=== PATIENT | male | born 1955 | race Two or more races ===

== ENCOUNTER 2023-03-28 07:10 | Inpatient (IN) | payer OTHER ==
[~2023-03-28] VITALS: Ht 167.6 cm; Wt 98.1 kg
[~2023-03-28 07:10] MED LIST: AZITTAB11 PO; METH4TAB PO; OXCA600T3 PO; OXCARBAZEPINE; PHEN100C PO; PHENYTOIN; TOPI100T68 PO; TOPI25TA43 PO
[2023-03-28 08:00] LABS: Basophils # (auto) 0 10 ^3/uL (0-0.2); Basophils % (auto) 0.3 % (0.0-2.0); Eosinophils # (auto) 0 10 ^3/uL (0-0.8); Eosinophils % (auto) 0.4 % (0.0-7.0); Hematocrit 41.8 % (41.0-53.0); Hemoglobin 14.2 g/dL (13.5-17.5); Lymphocytes # (auto) 1.4 10 ^3/uL (0.4-5.4); Lymphocytes % (auto) 14.5 % (10.0-50.0); Mean Corpuscular Hemoglobin 28.9 pg (28.0-32.0); Mean Corpuscular Hgb Conc. 34.1 g/dL (32.0-36.0); Mean Corpuscular Volume 84.9 fL (80.0-100.0); Monocytes # (auto) 1.1 10 ^3/uL (0-1.3); Monocytes % (auto) 11.1 % (0.0-12.0); Neutrophils # (auto) 7.1 10 ^3/uL (1.6-8.6); Neutrophils % (auto) 73.7 % (37.0-80.0); Nucleated Red Blood Cells % 0.1 %; Red Blood Cells 4.92 10^6/uL (4.5-5.90); Red Cell Distribution Width 13.4 % (11.8-14.3); White Blood Cell 9.7 10^3/uL (4.4-10.8)
[2023-03-28] MEDS: HYDROcodone-ACET 5/325MG TAB PO ONE (08:00)
[2023-03-28 08:01] LABS: Chloride 98 mmol/L (98-107); Potassium 4.3 mmol/L (3.5-5.1); Sodium 128 mmol/L (136-145)
[2023-03-28 08:02] LABS: Anion Gap 7 (5-15); Calcium 8.8 mg/dL (8.5-10.1); Carbon Dioxide 23 mmol/L (20-30)
[2023-03-28 08:07] LABS: BUN/Creatinine Ratio 20.5 (10.0-20.0); Blood Urea Nitrogen 16 mg/dL (9-23); Glucose 102 mg/dL (74-106)
[2023-03-28 08:15] VITALS: RESP 18; O2SAT 98
[2023-03-28] MEDS ORDERED: MORPHINE SULFATE INJ 2 MG/ml SYRG IV PRN (09:00)
[2023-03-28] MEDS ORDERED: NITROGLYCERIN 0.4 MG SL TAB SL PRN (09:00)
[2023-03-28] MEDS: SODIUM CHLORIDE 0.9% 1,000 ML IV ONE (09:18)
[2023-03-28] MEDS: PHENYTOIN SODIUM 100 MG CAP PO SCH (10:00)
[2023-03-28] MEDS: TOPIRAMATE 100 MG TAB PO SCH (10:00)
[2023-03-28] MEDS: ENOXAPARIN SOD 40 MG/0.4 ML SYRINGE SC SCH (10:13)
[2023-03-28 10:22] LABS: Urine WBC None Seen /hpf (0 - 3)
[2023-03-28] MEDS ORDERED: LORazepam 2MG/ML-1ML VIAL IV PRN ×2 (10:30)
[2023-03-28 10:39] LABS: Triglycerides 109 mg/dL (< 150)
[2023-03-28 10:40] LABS: LDL Cholesterol 134 mg/dL (< 100)
[2023-03-28 10:41] LABS: Cholesterol 210 mg/dL (< 200); HDL Cholesterol 61 mg/dL (40-59)
[2023-03-28 10:47] LABS: Urine Bacteria NONE SEEN /hpf (None Seen); Urine Blood Negative /uL (Negative); Urine Clarity Clear (Clear); Urine Color Colorless (Yellow); Urine Mucus FEW (None Seen); Urine Protein, UAD Negative (Negative); Urine Urobilinogen Normal (Negative)
[2023-03-28 10:53] LABS: Amphetamine Screen, Urine Neg (NEGATIVE); Barbiturate Scree,Urine Neg (NEGATIVE); Benzodiazephine Screen, Urine Neg (NEGATIVE); Cannabinoid Screen, Urine Neg (NEGATIVE); Cocaine Screen, Urine Neg (NEGATIVE); Opiate Scree,Urine Neg (NEGATIVE); Phencyclidine Screen, Urine Neg (NEGATIVE)
[2023-03-28 11:29] LABS: Free T4 (Free Thyroxine) 0.92 ng/dL (0.89-1.76)
[2023-03-28 11:30] LABS: Folate (Folic Acid) 22.95 ng/mL (>5.38)
[2023-03-28] MEDS: SODIUM CHLORIDE 0.9% 1,000 ML IV SCH (12:32)
[2023-03-28 17:38] LABS: Alanine Aminotransferase 28 U/L (7-40); Aspartate Aminotransferase 26 U/L (13-40)
[2023-03-28 20:00] VITALS: RESP 16; O2SAT 98
[2023-03-28] MEDS: ACETAMINOPHEN 325 MG TAB PO PRN (20:49)
[2023-03-28] MEDS: TOPIRAMATE 25 MG TAB PO SCH (22:53)
[2023-03-28] MEDS: levETIRAcetam 500 MG TAB PO SCH (22:54)
[2023-03-29 05:26] LABS: Basophils # (auto) 0 10 ^3/uL (0-0.2); Basophils % (auto) 0.4 % (0.0-2.0); Eosinophils # (auto) 0 10 ^3/uL (0-0.8); Eosinophils % (auto) 0.5 % (0.0-7.0); Hematocrit 40.6 % (41.0-53.0); Hemoglobin 13.7 g/dL (13.5-17.5); Lymphocytes # (auto) 1.7 10 ^3/uL (0.4-5.4); Lymphocytes % (auto) 19.7 % (10.0-50.0); Mean Corpuscular Hemoglobin 28.7 pg (28.0-32.0); Mean Corpuscular Hgb Conc. 33.7 g/dL (32.0-36.0); Mean Corpuscular Volume 85.2 fL (80.0-100.0); Monocytes # (auto) 0.9 10 ^3/uL (0-1.3); Neutrophils # (auto) 6.1 10 ^3/uL (1.6-8.6); Neutrophils % (auto) 69.4 % (37.0-80.0); Nucleated Red Blood Cells % 0.1 %; Red Blood Cells 4.76 10^6/uL (4.5-5.90); Red Cell Distribution Width 13.6 % (11.8-14.3); White Blood Cell 8.8 10^3/uL (4.4-10.8)
[2023-03-29 05:48] LABS: Alanine Aminotransferase 29 U/L (7-40); Albumin 4.3 g/dL (3.2-4.8); Alkaline Phosphatase 95 U/L (46-116); Anion Gap 4 (5-15); Aspartate Aminotransferase 24 U/L (13-40); BUN/Creatinine Ratio 16.4 (10.0-20.0); Bilirubin, Total 0.4 mg/dL (0.2-1.0); Blood Urea Nitrogen 12 mg/dL (9-23); Calcium 8.8 mg/dL (8.5-10.1); Carbon Dioxide 24 mmol/L (20-30); Chloride 101 mmol/L (98-107); Glucose 104 mg/dL (74-106); Potassium 3.8 mmol/L (3.5-5.1); Sodium 129 mmol/L (136-145)
[2023-03-29 05:49] LABS: Total Protein 7.4 g/dL (5.7-8.2)
[2023-03-29 07:30] VITALS: PULSE 71; RESP 15; O2SAT 99
[2023-03-29] MEDS: OPTISON 3ml Vial for INJ IV ONE ×2 (10:10→10:31)
[2023-03-29] MEDS ORDERED: LEVE500T3 PO (18:47)
[2023-03-29] MEDS ORDERED: LISI20TA56 PO (18:47)
[2023-03-29] MEDS ORDERED: PHEN1CAP60 PO (18:47)
[2023-03-29 20:00] VITALS: PULSE 63; PULSE 79; RESP 16; O2SAT 96
[2023-03-29] MEDS: CYANOCOBALAMIN (B-12) 1000 MCG/1 ML VIAL IM ONE (20:04)
[2023-03-30] VITALS (7 sets, daily range): BP systolic 117–125; BP diastolic 81–86; PULSE 62–80; RESP 20–68; TEMP 97.5–98.9; O2SAT 96–99
[2023-03-30] MEDS: CYANOCOBALAMIN 500 MCG TAB PO SCH (10:36)
[2023-03-31 05:00] VITALS: BP 124/86; PULSE 65; RESP 20; TEMP 97.7; O2SAT 97
[2023-03-31 08:00] VITALS: PULSE 58; RESP 20; O2SAT 96
[2023-03-31 09:00] VITALS: BP 110/69; PULSE 83; RESP 18; TEMP 98.4; O2SAT 97
[2023-03-31 13:00] VITALS: BP 130/84; PULSE 70; RESP 18; TEMP 97.8; O2SAT 97
[2023-03-31 13:05] VITALS: BP 130/84; PULSE 70; RESP 18; TEMP 97.8; O2SAT 97
[2023-04-01 08:06] LABS: Homocyst(e)ine 8.3 umol/L (0.0-17.2)
== END 2023-03-31 13:45 | disposition home or self-care (01) | DRG 100 ==
LOC: ER 07:10 → TELE 08:53 → TELE-WESTW 03-29 18:38
PROVIDERS: ADMIT Nurse Practitioner Family; ATTEND Family Medicine
DX: G40.409 Other generalized epilepsy and epileptic syndromes, not intractable, without status epilepticus (principal); G93.41 Metabolic encephalopathy; E87.1 Hypo-osmolality and hyponatremia; I11.0 Hypertensive heart disease with heart failure; E66.01 Morbid (severe) obesity due to excess calories; I45.10 Unspecified right bundle-branch block; R29.6 Repeated falls; E78.5 Hyperlipidemia, unspecified; F10.10 Alcohol abuse, uncomplicated; I50.9 Heart failure, unspecified; Z68.34 Body mass index [BMI] 34.0-34.9, adult; Z71.3 Dietary counseling and surveillance; Z79.899 Other long term (current) drug therapy; Z82.49 Family history of ischemic heart disease and other diseases of the circulatory system; Z87.891 Personal history of nicotine dependence
CPT/HCPCS: 36415; 70450; 70551; 80048; 80053; 80061; 80185; 80307; 81001; 82607; 82746; 83036; 83090; 83735; 83880; 83930; 84439; 84443; 84450; 84460; 84484; 85025; 93005; 93306; 93886; 95819; 96360; 97163; 99291; G0378; Q9956

== ENCOUNTER 2023-07-05 11:39 | Emergency (ER) | payer OTHER ==
[~2023-07-05] VITALS: Ht 167.6 cm; Wt 97.0 kg
[~2023-07-05 11:39] MED LIST changes: +LEVE500T3 PO; +LISI20TA56 PO; -OXCARBAZEPINE; -PHENYTOIN
[2023-07-05 13:42] LABS: Basophils # (auto) 0.1 10 ^3/uL (0-0.2); Basophils % (auto) 0.5 % (0.0-2.0); Eosinophils # (auto) 0.2 10 ^3/uL (0-0.8); Eosinophils % (auto) 1.8 % (0.0-7.0); Hematocrit 40.3 % (41.0-53.0); Hemoglobin 13.3 g/dL (13.5-17.5); Lymphocytes # (auto) 1.9 10 ^3/uL (0.4-5.4); Lymphocytes % (auto) 16.1 % (10.0-50.0); Mean Corpuscular Hemoglobin 28.1 pg (28.0-32.0); Monocytes # (auto) 0.8 10 ^3/uL (0-1.3); Monocytes % (auto) 7.1 % (0.0-12.0); Neutrophils # (auto) 8.9 10 ^3/uL (1.6-8.6); Neutrophils % (auto) 74.5 % (37.0-80.0); Red Blood Cells 4.73 10^6/uL (4.5-5.90); White Blood Cell 11.9 10^3/uL (4.4-10.8)
[2023-07-05 14:30] LABS: Alanine Aminotransferase 21 U/L (7-40); Albumin 4.2 g/dL (3.2-4.8); Alkaline Phosphatase 93 U/L (46-116); Anion Gap 4 (5-15); Aspartate Aminotransferase 21 U/L (13-40); BUN/Creatinine Ratio 15.9 (10.0-20.0); Blood Urea Nitrogen 13 mg/dL (9-23); Calcium 9.8 mg/dL (8.7-10.4); Carbon Dioxide 25 mmol/L (20-30); Chloride 104 mmol/L (98-107); Glucose 93 mg/dL (74-106); Potassium 4.3 mmol/L (3.5-5.1); Sodium 133 mmol/L (136-145)
[2023-07-05 14:31] LABS: Bilirubin, Total 0.2 mg/dL (0.2-1.0); Total Protein 7.6 g/dL (5.7-8.2)
[2023-07-05 15:35] VITALS: BP 141/86; PULSE 88; RESP 18; TEMP 97.9; O2SAT 98
== END 2023-07-05 15:37 | disposition home or self-care (01) ==
LOC: ER 11:39
DX: R55 Syncope and collapse (principal); R51.9 Headache, unspecified; R07.89 Other chest pain; I10 Essential (primary) hypertension; Z90.49 Acquired absence of other specified parts of digestive tract
CPT/HCPCS: 36415; 70450; 71045; 80053; 83735; 85025